=== PATIENT | male | born 1955 | race Caucasian/White ===

== ENCOUNTER 2018-10-02 14:07 | Emergency (ER) | payer OTHER ==
[~2018-10-02] VITALS: Ht 188 cm; Wt 102.1 kg
--- NOTE | 2018-10-02 15:00 | NUR ---
PT PRESENTS TO ED FOR INCREASING NUMBNESS TO BILATERAL LOWER LEGS. PT HAD LUMBAR SURGERY IN EARLY JULY. DECREASED SENSATION TO BILATERAL LOWER LEGS POST SURGERY, NOT RESOLVING. PT NOTIFIED SURGEON AND WAS TOLD TO COME TO ED. NO PAIN NOTED AT THIS TIME. CONNECTED TO BP AND PULSE OX. VSS. [place] TO BEDSIDE FOR ASSESSMENT. LABS BEING DRAWN NOW. AWAITING RESULTS.
[2018-10-02 15:39] LABS: BASOPHILS # (AUTO) 0.07 x10^3/uL (0-0.1); BASOPHILS % (AUTO) 1 % (0-1); EOSINOPHILS # (AUTO) 0.67 x10^3/uL (0-0.4); EOSINOPHILS % (AUTO) 8 % (1-7); LYMPHOCYTES # (AUTO) 1.94 x10^3/uL (1-3.4); LYMPHOCYTES % (AUTO) 24 % (22-44); MD NO; MEAN CORPUSCULAR HEMOGLOBIN 31.7 pg (27.5-34.5); MEAN CORPUSCULAR HGB CONC 33.4 g/dL (33.2-36.2); MEAN CORPUSCULAR VOLUME 94.7 fL (81-97); MEAN PLATELET VOLUME 8.1 fL (7.4-10.4); MONOCYTES % (AUTO) 11 % (2-9); NEUTROPHILS # (AUTO) 4.58 x10^3/uL (1.8-6.8); NEUTROPHILS % (AUTO) 56 % (42-75); PLATELET COUNT 306 x10^3/uL (130-400); RED BLOOD COUNT 5.08 x10^6/uL (4.38-5.82); RED CELL DISTRIBUTION WIDTH 13.4 % (9.4-14.8)
--- NOTE | 2018-10-02 15:42 | NUR ---
EDMD AT BEDSIDE TO UPDATE PT AND FAMILY ON POC. PLAN TO ADMIT. CALL LIGHT WITHIN REACH. WILL CONTINUE TO MONITOR.
[2018-10-02 15:47] LABS: ALBUMIN 3.8 g/dL (3.4-5.0); ANION GAP 9 mmol/L (5-15); CHLORIDE 103 mmol/L (98-107)
[2018-10-02 15:48] LABS: CREATININE 0.89 mg/dL (0.7-1.3)
[2018-10-02] MEDS ORDERED: SODIUM CHLORIDE FLUSH 10ML SYR IVF ONE (16:00)
[2018-10-02 16:12] VITALS: BP 126/79
[2018-10-02] MEDS ORDERED: ESOM40SU PO (16:12)
[2018-10-02] MEDS ORDERED: ATOR-2 PO (16:12)
[2018-10-02] MEDS ORDERED: MONT10TA9 PO (16:12)
[2018-10-02] MEDS ORDERED: LISI-167 PO (16:12)
[2018-10-02] MEDS ORDERED: METF500T17 PO (16:12)
[2018-10-02] MEDS ORDERED: OXYC-296 PO (16:12)
[2018-10-02] MEDS ORDERED: TEST200V21 IM (16:12)
--- NOTE | 2018-10-02 16:13 | NUR ---
JOCY HAYNES ASSIGNMENT
--- NOTE | 2018-10-02 16:29 | NUR ---
REPORT TO DAVEY RIVAS.
[2018-10-02] MEDS ORDERED: SODIUM CHLORIDE FLUSH 10ML SYR IVF PRN (17:00)
== END 2018-10-02 17:46 | disposition short-term general hospital (02) ==
LOC: ED 15:30 → EDIP 16:46 → UNDOADMIN 16:46
DX: M54.16 Radiculopathy, lumbar region (principal); G89.29 Other chronic pain; I10 Essential (primary) hypertension; E11.9 Type 2 diabetes mellitus without complications; E78.5 Hyperlipidemia, unspecified; Z88.0 Allergy status to penicillin
CPT/HCPCS: 36415; 80048; 82040; 85025; 99283; 99285